=== PATIENT | male | born 1960 | race Caucasian/White ===

== ENCOUNTER 2017-09-27 06:35 | Inpatient (IN) | payer OTHER ==
[2017-09-27] MEDS ORDERED: MORPHINE 10 MG/ML VIAL ONE (07:43)
[2017-09-27] MEDS ORDERED: ONDANSETRON 4 MG/2 ML VIAL ONE (07:43)
[2017-09-27 08:01] LABS: Absolute Lymphocytes (CBC) 2.3 K/uL (0.7-4.9); Absolute Neutrophil 10.3 K/uL (1.8-8.0); Basophils % 0.7 % (0-1.3); Eosinophils % 1.4 % (0-4.4); Hematocrit 41.4 % (39.6-49.0); Lymphocytes % 16.7 % (15.3-44.8); MCH 36.3 pg (27.0-35.0); MCV 104.1 fL (80-100); MPV 10.5 fL (7.6-11.3); Monocytes % 7.2 % (3.3-12.3); RBC Red Blood Cell Count 3.98 M/uL (4.33-5.43)
[2017-09-27 08:14] LABS: Bicarbonate 30 mEq/L (21-31); Glomerular Filtration Rate > 60 mL/min (>60); Glucose Level 134 mg/dL (65-120); Potassium 3.9 mEq/L (3.6-5.0); Sodium Level 137 mEq/L (135-145)
[2017-09-27 08:21] LABS: ALT/SGPT 33 IU/L (10-60); AST/SGOT 31 IU/L (10-42); Albumin 3.5 g/dL (3.2-5.5); Alkaline Phosphatase 71 IU/L (42-121); BUN Blood Urea Nitrogen 13 mg/dL (6-20); Bilirubin Direct 0.3 mg/dL (0-0.2); Bilirubin Total 1.5 mg/dL (0.3-1.2); Glomerular Filtration Rate > 90 mL/min (=/>90); Protein, Total 6.8 g/dL (6.0-8.3)
[2017-09-27 09:05] LABS: Lipase 562 U/L (22-51)
--- NOTE | 2017-09-27 09:05 | RAD REPORT ---
EXAM DESCRIPTION: CTAbdomen Pelvis W Contrast - 09/27/2017 8:40 am CLINICAL HISTORY: Abdominal pain. COMPARISON: 08/27/2017, 08/21/2017 TECHNIQUE: Biphasic CT imaging of the abdomen and pelvis was performed with 100 ml non-ionic IV cont rast. All CT scans are performed using dose optimization technique as appropriate and may include automated exposure control or mA/KV adjustment according to patient size. FINDINGS: The lung bases are clear. Mild diffuse fatty liver is seen. No focal liver lesion or biliary dilatation. The spleen appears abs ent, however several splenules are present in the left upper quadrant. Peripancreatic fat stranding i s seen about the tail the pancreas. No pathologic fluid collections, pancreatic necrosis or portal ve nous thrombosis. The adrenal glands and kidneys are unremarkable. No bowel obstruction, free air, free fluid or abscess. Small fat containing umbilical hernia. The kaiden endix is normal. No evidence of significant lymphadenopathy. Moderate lower lumbar degenerative changes. IMPRESSION: Mild peripancreatic fat stranding is seen particularly along around body and tail the pa ncreas, most compatible with acute pancreatitis. No complication is evident related to this. Mild fatty liver.
--- NOTE | 2017-09-27 10:13 | RAD REPORT ---
EXAM DESCRIPTION: US - Abdomen Exam Limited - 09/27/2017 10:02 am CLINICAL HISTORY: Right upper quadrant pain COMPARISON: CT study same date FINDINGS: No gallstones, sludge or other abnormalities within the gallbladder lumen. There is no wal l thickening or pericholecystic fluid. No common duct stone or biliary tree dilatation identified. Liver is not fully assessed but does show a fatty infiltration pattern. IMPRESSION: Normal gallbladder and biliary tree ultrasound. Fatty infiltration of a partially imaged liver.
[2017-09-27] MEDS ORDERED: NA CHLORIDE 0.9% 1,000 ML ONE ×2 (10:14→11:49)
--- NOTE | 2017-09-27 10:35 | EDPHYS ---
Physician Documentation [facility] Name: Miky Boudreaux Age: 57 yrs Sex: Male : 1960 Arrival Date: 09/27/2017 Time: 06:36 Bed 7 Private MD: ED Physician Jasper Hernandez HPI: 09/27 07:28 This 57 yrs old Male presents to ER via Wheelchair with complaints of jr8 Abdominal Pain. 07:28 The patient presents with abdominal pain that is diffuse. Onset: The symptoms/episode jr8 began/occurred acutely, yesterday. The symptoms do not radiate. Associated signs and symptoms: Pertinent positives: diarrhea, Pertinent negatives: nausea and vomiting. The symptoms are described as sharp. Modifying factors: The symptoms are alleviated by nothing, the symptoms are aggravated by nothing. Severity of pain: At its worst the pain was moderate in the emergency department the pain is unchanged. The patient has not experienced similar symptoms in the past. The patient has not recently seen a physician. 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 - Social history:: Smoking status: Patient uses tobacco products, smokes one-half pack cigarettes per day, Patient uses alcohol, on a daily basis. Patient/guardian denies using street drugs. ROS: 07:28 Eyes: Negative for injury, pain, redness, and discharge, ENT: Negative for injury, jr8 pain, and discharge, Neck: Negative for injury, pain, and swelling, Cardiovascular: Negative for chest pain, palpitations, and edema, Respiratory: Negative for shortness of breath, cough, wheezing, and pleuritic chest pain, Back: Negative for injury and pain, MS/Extremity: Negative for injury and deformity, Skin: Negative for injury, rash, and discoloration, Neuro: Negative for headache, weakness, numbness, tingling, and seizure. 07:28 Abdomen/GI: Positive for abdominal pain, diarrhea, Negative for nausea and vomiting, abdominal distension, anorexia, dysphagia, hematemesis, black/tarry stool, rectal pain, rectal bleeding, bowel incontinence, flatulence. Exam: 07:28 Eyes: Pupils equal round and reactive to light, extra-ocular motions intact. Lids and jr8 lashes normal. Conjunctiva and sclera are non-icteric and not injected. Cornea within normal limits. Periorbital areas with no swelling, redness, or edema. ENT: Nares patent. No nasal discharge, no septal abnormalities noted. Tympanic membranes are normal and external auditory canals are clear. Oropharynx with no redness, swelling, or masses, exudates, or evidence of obstruction, uvula midline. Mucous membranes moist. Neck: Trachea midline, no thyromegaly or masses palpated, and no cervical lymphadenopathy. Supple, full range of motion without nuchal rigidity, or vertebral point tenderness. No Meningismus. Cardiovascular: Regular rate and rhythm with a normal S1 and S2. No gallops, murmurs, or rubs. Normal PMI, no JVD. No pulse deficits. Respiratory: Lungs have equal breath sounds bilaterally, clear to auscultation and percussion. No rales, rhonchi or wheezes noted. No increased work of breathing, no retractions or nasal flaring. Back: No spinal tenderness. No costovertebral tenderness. Full range of motion. Skin: Warm, dry with normal turgor. Normal color with no rashes, no lesions, and no evidence of cellulitis. MS/ Extremity: Pulses equal, no cyanosis. Neurovascular intact. Full, normal range of motion. Neuro: Awake and alert, GCS 15, oriented to person, place, time, and situation. Cranial nerves II-XII grossly intact. Motor strength 5/5 in all extremities. Sensory grossly intact. Cerebellar exam normal. Normal gait. 07:28 Abdomen/GI: Inspection: obese Bowel sounds: active, all quadrants, Palpation: soft, in all quadrants, mild abdominal tenderness, in the abdomen diffusely, Indicators: McBurney's point is not tender, Will's sign is negative, Rovsing's sign is negative, Liver: tenderness, is not appreciated. Vital Signs: 07:02 BP 133 / 85; Pulse 113; Resp 20 S; Temp 98.2(O); Pulse Ox 97% on 2 lpm NC; Weight bb 128.82 kg (R); Height 5 ft. 9 in. (175.26 cm) (R); Pain 10/10; 12:00 BP 141 / 86; Pulse 91; Resp 18; Temp 98.2; Pulse Ox 96% ; sg 07:02 Body Mass Index 41.94 (128.82 kg, 175.26 cm) bb Crivitz Coma Score: 12:00 Eye Response: spontaneous(4). Verbal Response: oriented(5). Motor Response: obeys sg commands(6). Total: 15. MDM: 06:55 Patient medically screened. [facility] 10:33 Data reviewed: vital signs, nurses notes, lab test result(s), radiologic studies, CT [facility] scan, ultrasound, and as a result, I will admit patient. Data interpreted: Pulse oximetry: on room air is 97 %. Interpretation: normal. Counseling: I had a detailed discussion with the patient and/or guardian regarding: the historical points, exam findings, and any diagnostic results supporting the discharge/admit diagnosis, lab results, radiology results, the need for further work-up and treatment in the hospital. Physician consultation: Amy Mane MD was called at 10:34, was contacted at 10:34, regarding admission, to the medical/surgical unit. consult, patient's condition, and will see patient. 09/27 07:03 Order name: Basic Metabolic Panel [facility] 09/27 07:03 Order name: CBC with Diff [facility] 09/27 07:03 Order name: Creatinine for Radiology [facility] 09/27 07:03 Order name: Hepatic Function [facility] 09/27 07:03 Order name: Lipase [facility] 09/27 08:02 Order name: CBC with Automated Diff; Complete Time: 08:07 EDAK 09/27 08:14 Order name: Creatinine (Radiology Only); Complete Time: 08:17 EDAK 09/27 08:15 Order name: Basic Metabolic Panel; Complete Time: 09:18 EDMS 09/27 08:17 Order name: CT Abd/Pelvis - W/Contrast [facility] 09/27 08:21 Order name: Liver (Hepatic) Function; Complete Time: 09:18 EDMS 09/27 09:05 Order name: Lipase; Complete Time: 09:18 EDMS 09/27 09:06 Order name: CT; Complete Time: 09:18 EDMS 09/27 09:19 Order name: US Abdomen Limited [facility] 09/27 10:13 Order name: US; Complete Time: 10:31 EDMS 09/27 07:03 Order name: IV Saline Lock; Complete Time: 07:31 [facility] /19 07:03 Order name: Labs collected and sent; Complete Time: 09/27 09:18 Order name: NPO; Complete Time: 11:35 sg Administered Medications: 07:30 Drug: Zofran 4 mg Route: IVP; Site: left antecubital; sg 07:36 Drug: morphine 4 mg Route: IVP; Site: left antecubital; sg 08:00 Follow up: Response: No adverse reaction; Pain is decreased sg 09:45 Drug: NS 0.9% 1000 ml Route: IV; Rate: 1000 ml; Site: left antecubital; hb 11:30 Follow up: Response: No adverse reaction; IV Status: Completed infusion sg 11:34 Drug: morphine 4 mg Route: IVP; Site: left antecubital; hb 12:16 Follow up: Response: No adverse reaction; Pain is decreased sg Disposition: 09/28 07:22 Co-signature as Attending Physician, Jasper Hernandez MD I agree with the assessment and josh plan of care. Disposition: 09/27/17 10:34 Hospitalization ordered by Amy Mane for Inpatient Admission. Preliminary diagnosis is Acute pancreatitis. - Bed requested for Telemetry/MedSurg (Inpatient). - Status is Inpatient Admission. sg - Condition is Stable. - Problem is new. - Symptoms have improved. UTI on Admission? No Signatures: Dispatcher [employer] Brent Miranda, RN Jasper Roper MD MD cha Ballard, Brenda, RN RN bb Solis, Maria ms Roszak, Josh, PA PA jr8 Gabi Santillan RN RN hb
--- NOTE | 2017-09-27 10:35 | ER ---
Nurse's Notes [facility] Name: Miky Boudreaux Age: 57 yrs Sex: Male : 1960 Arrival Date: 09/27/2017 Time: 06:36 Bed 7 Private MD: Diagnosis: Acute pancreatitis Presentation: 09/27 07:00 Presenting complaint: Patient states: he started having abdominal pain yesterday bb afternoon with diarrhea, denies vomiting. Transition of care: patient was not received from another setting of care. Onset of symptoms was September 26, 2017. Care prior to arrival: None. 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 - Social history:: Smoking status: Patient uses tobacco products, smokes one-half pack cigarettes per day, Patient uses alcohol, on a daily basis. Patient/guardian denies using street drugs. Screenin:15 Abuse screen: Denies threats or abuse. Denies injuries from another. Nutritional sg screening: No deficits noted. Tuberculosis screening: No symptoms or risk factors identified. Never had TB. Fall Risk None identified. Assessment: 07:15 General: Appears in no apparent distress. uncomfortable, obese, well groomed, well sg developed, well nourished, Behavior is calm, cooperative, appropriate for age. Pain: Complains of pain in abdomen diffusely. Neuro: No deficits noted. Cardiovascular: Heart tones S1 S2 present Capillary refill is brisk in bilateral fingers Patient's skin is warm and dry. Chest pain is denied. Respiratory: Airway is patent Respiratory effort is even, unlabored, Respiratory pattern is regular, symmetrical, Breath sounds are clear. GI: Bowel sounds present X 4 quads. Abd is soft X 4 quads Abdomen is tender to palpation in epigastric area. GI: Reports lower abdominal pain, upper abdominal pain, nausea. : No signs and/or symptoms were reported regarding the genitourinary system. EENT: No signs and/or symptoms were reported regarding the EENT system. Derm: Skin is pink, warm \T\ dry. Musculoskeletal: No signs and/or symptoms reported regarding the musculoskeletal system. 09:00 Reassessment: Patient appears in no apparent distress at this time. Patient and/or sg family updated on plan of care and expected duration. Pain level reassessed. Patient is alert, oriented x 3, equal unlabored respirations, skin warm/dry/pink. Patient states feeling better. 12:00 Reassessment: Patient appears in no apparent distress at this time. Patient and/or sg family updated on plan of care and expected duration. Pain level reassessed. Patient is alert, oriented x 3, equal unlabored respirations, skin warm/dry/pink. Patient states feeling better. Vital Signs: 07:02 BP 133 / 85; Pulse 113; Resp 20 S; Temp 98.2(O); Pulse Ox 97% on 2 lpm NC; Weight bb 128.82 kg (R); Height 5 ft. 9 in. (175.26 cm) (R); Pain 10/10; 12:00 BP 141 / 86; Pulse 91; Resp 18; Temp 98.2; Pulse Ox 96% ; sg 07:02 Body Mass Index 41.94 (128.82 kg, 175.26 cm) bb Dialia Coma Score: 12:00 Eye Response: spontaneous(4). Verbal Response: oriented(5). Motor Response: obeys sg commands(6). Total: 15. ED Course: 06:36 Patient arrived in ED. ds1 06:55 Aleksander Alonso PA is PHCP. jr8 06:55 Clarence Banegas MD is Attending Physician. jr8 07:00 Missed attempt(s): 22 gauge in left forearm. Bleeding controlled, band aid applied, ea catheter tip intact. 07:01 Triage completed. bb 07:02 Arm band placed on Patient placed in an exam room, on a stretcher, on pulse oximetry. bb Family accompanied patient. 07:15 Patient has correct armband on for positive identification. Bed in low position. Call sg light in reach. Pulse ox on. NIBP on. 07:15 Missed attempt(s): 22 gauge in right antecubital area. Bleeding controlled, band aid ea applied, catheter tip intact. 07:21 Brent Lagos, RN is Primary Nurse. sg 07:32 Initial lab(s) drawn, by me, sent to lab. Inserted saline lock: 20 gauge in left ms antecubital area, using aseptic technique. Blood collected. Missed attempt(s): 22 gauge in right wrist. Bleeding controlled, band aid applied, catheter tip intact. 08:07 Jasper Hernandez MD is Attending Physician. jr8 08:39 CT completed. Patient tolerated procedure well. Patient moved to CT via wheelchair. sj Patient moved back from CT. 08:44 CT completed. Patient tolerated procedure well. Patient moved to CT via wheelchair. sj Patient moved back from CT. 10:34 Amy Mane MD is Hospitalizing Provider. jr8 11:04 Ultrasound completed. Patient tolerated well. Patient moved back from ultrasound. lc3 12:25 No provider procedures requiring assistance completed. Patient admitted, IV remains in sg place. intact, No redness/swelling at site. Administered Medications: 07:30 Drug: Zofran 4 mg Route: IVP; Site: left antecubital; sg 07:36 Drug: morphine 4 mg Route: IVP; Site: left antecubital; sg 08:00 Follow up: Response: No adverse reaction; Pain is decreased sg 09:45 Drug: NS 0.9% 1000 ml Route: IV; Rate: 1000 ml; Site: left antecubital; hb 11:30 Follow up: Response: No adverse reaction; IV Status: Completed infusion sg 11:34 Drug: morphine 4 mg Route: IVP; Site: left antecubital; hb 12:16 Follow up: Response: No adverse reaction; Pain is decreased sg Outcome: 10:34 Decision to Hospitalize by Provider. jr8 12:25 Admitted to Med/surg accompanied by tech, family with patient, via wheelchair, room sg 203, with chart, Report called to [facility] 12:25 Condition: stable 12:25 Instructed on the need for admit, safety practices, Demonstrated understanding of instructions, follow-up care. 12:28 Patient left the ED. sg Signatures: Brent Lagos RN RN sg Jones, Susan sj Sanford, Demi ds1 Michelle Diane RN RN bb Solis, Maria ms Roszak, Josh, MANINDER DICKENS jr8 Velia Simmons Heather, RN RN Sindy Jaime RN RN ea
[2017-09-27] MEDS ORDERED: MORPHINE 4 MG/ML SYR IV PRN (11:28)
[2017-09-27] MEDS ORDERED: ACETAMINOPHEN 500 MG TAB PO PRN (11:28)
[2017-09-27] MEDS: NA CHLORIDE 0.9% 1,000 ML IV SCH ×2 (11:28→20:57)
[2017-09-27] MEDS ORDERED: ONDANSETRON 4 MG/2 ML VIAL IV PRN (11:28)
[2017-09-27] MEDS ORDERED: MORPHINE 4 MG/ML SYR ONE (11:49)
[2017-09-27 12:55] VITALS: BMI 42.1
[2017-09-27] MEDS ORDERED: ALBUTEROL 2.5 MG/3 ML NEB SOL NEB PRN (15:23)
[2017-09-27] MEDS ORDERED: IPRATROPIUM BROM 0.5MG/2.5ML NEB PRN (15:23)
--- NOTE | 2017-09-27 18:21 | P.HP ---
Certification for Inpatient Patient admitted to: Inpatient With expected LOS: >2 Midnights Patient will require the following post-hospital care: None Practitioner: I am a practitioner with admitting privileges, knowledge of patient current condition, hospital course, and medical plan of care. Services: Services provided to patient in accordance with Admission requirements found in Title 42 Section 412.3 of the Code of Federal Regulations Patient History Date of Service: 09/27/17 Primary Care Provider: Dr Rodrigues Reason for admission: Pancreatitis History of Present Illness: This is a 57-year-old male with significant past medical history of COPD, hypertension, gout who presented to the ED having some generalized abdominal pain that started yesterday. Patient noted that he has been having sharp shooting pain in his abdomen that got progressively worse and thus he decided to come to the ER. Pain was 8/10 at its worst and has not been relieved by anything. Patient of note drinks about 4-5 glasses of vodka every night. Patient states that nothing like this has ever happened to him before this is the 1st time he has noticed this. Patient denies having any nausea vomiting diarrhea or any constipation at this time. He also denies having any shortness of breath chest pain. Aside from generalized abdominal pain he does not have any other complaints to offer. In the ER patient was found to have elevated lipase count and a normal ultrasound. Patient was then referred over to medicine team for admission for further care. Allergies No Known Allergies Allergy (Unverified 07/21/17 22:33) Home Medications: Allopurinol 100 mg PO DAILY 07/22/17 Aspirin [Aspir-Low] 81 mg PO DAILY 07/22/17 Cetirizine HCl [Zyrtec] 10 mg PO DAILY 07/22/17 Cyanocobalamin (Vitamin B-12) [B-12] 2,000 mcg PO DAILY 07/22/17 Folic Acid 1 mg PO DAILY 07/22/17 Lisinopril 10 mg PO LUNCH 07/22/17 Thiamine HCl 100 mg PO DAILY 07/22/17 Tramadol HCl [Ultram] 50 mg PO BEDTIME 07/22/17 Albuterol Inhaler [Ventolin Inhaler*] 2 puff IH Q6H PRN #1 hfa.aer.ad 07/23/17 Metformin HCl [Glucophage] 1 tab PO BID 07/23/17 Mometasone/Formoterol [Dulera 100 Mcg/5 Mcg Inhaler] 2 puff IH BID #1 inhaler Lactobacillus Acidophilus [Acidophilus Lactobacilli] 1 each PO TID #90 capsule 08/22/17 Magnesium Oxide [Mag 0X Tab] 400 mg PO BID #60 tab 08/22/17 Metronidazole [Flagyl] 500 mg PO Q8H #30 tablet 08/22/17 Pantoprazole [Protonix Tab*] 40 mg PO DAILYAC #30 tab 08/22/17 - Past Medical/Surgical History Has patient received pneumonia vaccine in the past: Yes Diabetic: No -: Gout -: HTN -: Allergies -: ETOH abuse -: Chronic Pain -: COPD -: Spleenectomy -: Shoulder Surgery - Family History Mother -: Lung disease - Social History Smoking Status: Current every day smoker Alcohol use: Yes CD- Drugs: No Caffeine use: Yes Place of Residence: Home Review of Systems 10-point ROS is otherwise unremarkable Physical Examination - Vital Signs Temperature: 95.7 F Blood Pressure: 163/92 Pulse: 104 Respirations: 16 Pulse Ox (%): 95 - Physical Exam General: Alert, In no apparent distress, Oriented x3 HEENT: Atraumatic, PERRLA, Mucous membr. moist/pink, EOMI, Sclerae nonicteric Neck: Supple, 2+ carotid pulse no bruit, No LAD, Without JVD or thyroid abnormality Respiratory: Clear to auscultation bilaterally, Normal air movement Cardiovascular: Regular rate/rhythm, Normal S1 S2 Gastrointestinal: Normal bowel sounds, Tenderness (Generalized pain) Musculoskeletal: No tenderness Integumentary: No rashes Neurological: Normal gait, Normal speech, Normal strength at 5/5 x4 extr, Normal tone, Normal affect Lymphatics: No axilla or inguinal lymphadenopathy - Studies Laboratory Data (last 24 hrs) 09/27/17 07:21: Creatinine 0.70 09/27/17 07:21: WBC 13.9 H, Hgb 14.4, Hct 41.4, Plt Count 175 09/27/17 07:21: Sodium 137, Potassium 3.9, BUN 13, Creatinine 0.72, Glucose 134 H, Total Bilirubin 1.5 H, AST 31, ALT 33, Alkaline Phosphatase 71, Lipase 562 H Assessment and Plan - Problems (Diagnosis) (1) Pancreatitis Current Visit: Yes Status: Acute Plan: Alcohol Induced Pancreatitis. -NPO, IVfluids and Pain medication -MRCP pending. Initially U/S WNL. No CBD dilation and stone noted -Lipid panel pending at this time. Qualifiers: Chronicity: acute Pancreatitis type: alcohol induced Acute pancreatitis complication: unspecified Qualified Code(s): K85.20 - Alcohol induced acute pancreatitis without necrosis or infection (2) COPD (chronic obstructive pulmonary disease) Onset Date: 07/22/17 Current Visit: No Status: Chronic Plan: Will place on Duonebs here in the hospital Qualifiers: COPD type: unspecified COPD Qualified Code(s): J44.9 - Chronic obstructive pulmonary disease, unspecified (3) GERD (gastroesophageal reflux disease) Current Visit: No Status: Chronic Plan: Will restart on Protonix. Qualifiers: Esophagitis presence: without esophagitis Qualified Code(s): K21.9 - Gastro -esophageal reflux disease without esophagitis (4) HTN (hypertension) Current Visit: No Status: Chronic Plan: Will restart on Lisinopril here in the hospital Qualifiers: Hypertension type: essential hypertension (5) Obesity Current Visit: No Status: Chronic Qualifiers: Obesity type: due to excess calories Obesity classification: adult class 3 (BMI >= 40) Serious obesity comorbidity presence: with serious comorbidity Body mass index: BMI 40.0-44.9 Qualified Code(s): E66.01 - Morbid (severe) obesity due to excess calories; Z68.41 - Body mass index (BMI) 40.0-44.9, adult ; Z68.41 - Body mass index (BMI) 40.0-44.9, adult; Z68.41 - Body mass index (BMI ) 40.0-44.9, adult; Z68.41 - Body mass index (BMI) 40.0-44.9, adult (6) Gout Current Visit: Yes Status: Chronic Plan: Will Restart Allopurinol Qualifiers: Gout site: unspecified site Gout etiology: unspecified cause Chronicity: chronic Presence of tophus: without tophus Qualified Code(s): M1A.[id number] - Chronic gout, unspecified, without tophus (tophi) (7) Alcohol abuse Current Visit: Yes Status: Acute Plan: 4 to 5 glasses of vodka a day or may be more -CIWA and ativan PRN for WD -PO vitamins, Folic Acid and thiamine Discharge Plan: Home Plan to discharge in: 48 Hours - Advance Directives Does patient have a Living Will: No Does patient have a Durable POA for Healthcare: No - Code Status/Comfort Care Code Status Assessed: Yes Critical Care: No
--- NOTE | 2017-09-27 19:19 | RAD REPORT ---
EXAM DESCRIPTION: MRI - Cholangiogram - 09/27/2017 6:36 pm CLINICAL HISTORY: Acute pancreatitis. Abdominal pain COMPARISON: CT study September 27 FINDINGS: No suspicious liver finding. Small remnant splenic nodules are seen in the left upper quad rant. No pancreatic parenchymal mass. No acute gallbladder finding seen. No intrahepatic biliary tree dilatation. Extrahepatic biliary tree is normal in diameter. No duct stone, stricture, mass or other duct abnormality seen. Imaged portions of the pancreatic duct show no suspicious finding. IMPRESSION: MRCP examination shows no significant or suspicious finding.
[2017-09-27] MEDS: LISINOPRIL 10 MG TAB PO SCH (20:55)
[2017-09-27] MEDS: MORPHINE 4 MG/ML SYR IV PRN (20:56)
[2017-09-27] MEDS: LACTOBACILLUS/ACIDOPHILUS TAB PO SCH (20:56)
[2017-09-27] MEDS: MAGNESIUM OXIDE 400 MG TAB PO SCH (20:56)
[2017-09-27 21:06] LABS: Urine Appearance CLEAR; Urine Blood NEGATIVE (NEG); Urine Color DK YELLOW; Urine Glucose NEGATIVE (NEG); Urine Protein NEGATIVE (NEG); Urine Specific Gravity >=1.030 (1.005-1.030); Urine Urobilinogen 0.2 mg/dL (0.2-1.0)
[2017-09-27 21:08] LABS: Urine Bilirubin NEGATIVE (NEG); Urine Microscopic Reflex NO UMIC
[2017-09-28] MEDS: MORPHINE 4 MG/ML SYR IV PRN ×4 (02:05→20:47)
[2017-09-28 04:57] LABS: Absolute Lymphocytes (CBC) 1.8 K/uL (0.7-4.9); Absolute Monocytes 1.3 K/uL (0.1-1.3); Absolute Neutrophil 13.6 K/uL (1.8-8.0); Basophils % 0.4 % (0-1.3); Eosinophils % 0.9 % (0-4.4); Hematocrit 37.8 % (39.6-49.0); Lymphocytes % 10.6 % (15.3-44.8); MCH 35.6 pg (27.0-35.0); MCV 106.6 fL (80-100); MPV 9.9 fL (7.6-11.3); Monocytes % 7.9 % (3.3-12.3); RBC Red Blood Cell Count 3.55 M/uL (4.33-5.43)
[2017-09-28 05:15] LABS: ALT/SGPT 28 IU/L (10-60); AST/SGOT 24 IU/L (10-42); Albumin 3.2 g/dL (3.2-5.5); Bicarbonate 31 mEq/L (21-31); Bilirubin Direct 0.4 mg/dL (0-0.2); Bilirubin Total 2.3 mg/dL (0.3-1.2); Protein, Total 5.9 g/dL (6.0-8.3); Sodium Level 138 mEq/L (135-145)
[2017-09-28 05:17] LABS: Blood Morphology Comment NOTED (NOT SEEN); Macrocytosis 1+; Platelet Estimate ADEQ; Urine White Blood Cell Casts OK
[2017-09-28 05:20] LABS: Alkaline Phosphatase 75 IU/L (42-121); BUN Blood Urea Nitrogen 10 mg/dL (6-20); Glomerular Filtration Rate > 90 mL/min (=/>90); Glucose Level 105 mg/dL (65-120); Lipase 145 U/L (22-51)
[2017-09-28] MEDS: PANTOPRAZOLE 40MG TABLET PO SCH (06:30)
[2017-09-28] MEDS: NA CHLORIDE 0.9% 1,000 ML IV SCH ×2 (09:45→17:05)
[2017-09-28] MEDS: THIAMINE HCL 100 MG TABLET PO SCH (09:46)
[2017-09-28] MEDS: FOLIC ACID 1 MG TABLET PO SCH (09:46)
[2017-09-28] MEDS: ASPIRIN EC 81 MG TAB PO SCH (09:46)
[2017-09-28] MEDS: MAGNESIUM OXIDE 400 MG TAB PO SCH ×2 (09:46→20:47)
[2017-09-28] MEDS: ALLOPURINOL 100 MG TAB PO SCH (09:46)
[2017-09-28] MEDS: CETIRIZINE HCL 5 MG TABLET PO SCH (09:46)
[2017-09-28] MEDS: LACTOBACILLUS/ACIDOPHILUS TAB PO SCH ×3 (09:46→20:47)
[2017-09-28] MEDS: CYANOCOBALAMIN 1,000 MCG TAB PO SCH (09:47)
--- NOTE | 2017-09-28 10:13 | P.PN ---
Subjective Date of Service: 09/28/17 Primary Care Provider: Dr Rodrigues Chief Complaint: Pancreatitis In and examined at bedside with RN. Case reviewed. Patient currently still complaining of having abdominal pain that is sharp in nature. Pain is 6/10. Patient is currently NPO and ambulatory Review of Systems 10-point ROS is otherwise unremarkable Physical Examination - Vital Signs Temperature: 97.2 F Blood Pressure: 147/87 Pulse: 101 Respirations: 18 Pulse Ox (%): 95 - Physical Exam General: Alert, In no apparent distress, Oriented x3 HEENT: Atraumatic, PERRLA, EOMI Neck: Supple, JVD not distended Respiratory: Clear to auscultation bilaterally, Normal air movement Cardiovascular: Regular rate/rhythm, Normal S1 S2 Gastrointestinal: Normal bowel sounds, Distended, Tenderness Musculoskeletal: No tenderness Integumentary: No rashes Neurological: Normal speech, Normal tone, Normal affect Lymphatics: No axilla or inguinal lymphadenopathy - Studies Medications List Reviewed: Yes Assessment & Plan - Problems (Diagnosis) (1) Pancreatitis Current Visit: Yes Status: Acute Plan: Alcohol Induced Pancreatitis. -FLD, IVfluids and Pain medication -MRCP negative. Initially U/S WNL. No CBD dilation and stone noted -Lipid panel with Elevated TG's. -Started on levofloxacin Qualifiers: Chronicity: acute Pancreatitis type: alcohol induced Acute pancreatitis complication: unspecified Qualified Code(s): K85.20 - Alcohol induced acute pancreatitis without necrosis or infection (2) COPD (chronic obstructive pulmonary disease) Onset Date: 07/22/17 Current Visit: No Status: Chronic Plan: On Duonebs here in the hospital Qualifiers: COPD type: unspecified COPD Qualified Code(s): J44.9 - Chronic obstructive pulmonary disease, unspecified (3) GERD (gastroesophageal reflux disease) Current Visit: No Status: Chronic Plan: On Protonix. Qualifiers: Esophagitis presence: without esophagitis Qualified Code(s): K21.9 - Gastro -esophageal reflux disease without esophagitis (4) HTN (hypertension) Current Visit: No Status: Chronic Plan: On Lisinopril here in the hospital Qualifiers: Hypertension type: essential hypertension (5) Obesity Current Visit: No Status: Chronic Qualifiers: Obesity type: due to excess calories Obesity classification: adult class 3 (BMI >= 40) Serious obesity comorbidity presence: with serious comorbidity Body mass index: BMI 40.0-44.9 Qualified Code(s): E66.01 - Morbid (severe) obesity due to excess calories; Z68.41 - Body mass index (BMI) 40.0-44.9, adult ; Z68.41 - Body mass index (BMI) 40.0-44.9, adult; Z68.41 - Body mass index (BMI ) 40.0-44.9, adult; Z68.41 - Body mass index (BMI) 40.0-44.9, adult (6) Gout Current Visit: Yes Status: Chronic Plan: Will Restart Allopurinol Qualifiers: Gout site: unspecified site Gout etiology: unspecified cause Chronicity: chronic Presence of tophus: without tophus Qualified Code(s): M1A.9XX0 - Chronic gout, unspecified, without tophus (tophi) (7) Alcohol abuse Current Visit: Yes Status: Acute Plan: 4 to 5 glasses of vodka a day or may be more -CIWA and ativan PRN for WD -PO vitamins, Folic Acid and thiamine
[2017-09-28] MEDS: LISINOPRIL 10 MG TAB PO SCH (12:49)
[2017-09-28] MEDS: Levofloxacin500mg IV 500 MG/100 ML BAG IV SCH (12:49)
[2017-09-28] MEDS: METRONIDAZOLE 500mg IVPB 500 MG/100 ML BAG IV SCH (17:04)
[2017-09-29] MEDS: NA CHLORIDE 0.9% 1,000 ML IV SCH ×3 (00:32→20:40)
[2017-09-29] MEDS: METRONIDAZOLE 500mg IVPB 500 MG/100 ML BAG IV SCH ×3 (00:32→16:43)
[2017-09-29] MEDS: PANTOPRAZOLE 40MG TABLET PO SCH (05:19)
[2017-09-29] MEDS: Levofloxacin500mg IV 500 MG/100 ML BAG IV SCH (10:15)
[2017-09-29] MEDS: LACTOBACILLUS/ACIDOPHILUS TAB PO SCH ×3 (10:15→20:20)
[2017-09-29] MEDS: CETIRIZINE HCL 5 MG TABLET PO SCH (10:16)
[2017-09-29] MEDS: ASPIRIN EC 81 MG TAB PO SCH (10:16)
[2017-09-29] MEDS: ALLOPURINOL 100 MG TAB PO SCH (10:16)
[2017-09-29] MEDS: CYANOCOBALAMIN 1,000 MCG TAB PO SCH (10:16)
[2017-09-29] MEDS: MAGNESIUM OXIDE 400 MG TAB PO SCH ×2 (10:16→20:20)
[2017-09-29] MEDS: THIAMINE HCL 100 MG TABLET PO SCH (10:16)
[2017-09-29] MEDS: FOLIC ACID 1 MG TABLET PO SCH (10:17)
[2017-09-29] MEDS: LISINOPRIL 10 MG TAB PO SCH (13:37)
[2017-09-29 21:39] VITALS: O2SAT 96
--- NOTE | 2017-09-29 23:00 | PN ---
The patient is doing much better. He still has some tenderness in the upper abdomen. However, bowel sounds are present. The patient will be started on liquid diet to see how he would tolerate. Deedee ng that management will be continued along the same lines. JOSE/RUSSELL Voice ID: [id number] Report ID: [id number]
[2017-09-30] MEDS: METRONIDAZOLE 500mg IVPB 500 MG/100 ML BAG IV SCH ×2 (00:11→09:11)
[2017-09-30] MEDS: PANTOPRAZOLE 40MG TABLET PO SCH (05:37)
[2017-09-30] MEDS: ASPIRIN EC 81 MG TAB PO SCH (09:11)
[2017-09-30] MEDS: LACTOBACILLUS/ACIDOPHILUS TAB PO SCH ×2 (09:11→13:17)
[2017-09-30] MEDS: CYANOCOBALAMIN 1,000 MCG TAB PO SCH (09:11)
[2017-09-30] MEDS: FOLIC ACID 1 MG TABLET PO SCH (09:11)
[2017-09-30] MEDS: MAGNESIUM OXIDE 400 MG TAB PO SCH (09:11)
[2017-09-30] MEDS: THIAMINE HCL 100 MG TABLET PO SCH (09:11)
[2017-09-30] MEDS: CETIRIZINE HCL 5 MG TABLET PO SCH (09:11)
[2017-09-30] MEDS: ALLOPURINOL 100 MG TAB PO SCH (09:12)
[2017-09-30 09:46] LABS: Absolute Lymphocytes (CBC) 1.8 K/uL (0.7-4.9); Absolute Monocytes 0.8 K/uL (0.1-1.3); Absolute Neutrophil 9.6 K/uL (1.8-8.0); Basophils % 0.6 % (0-1.3); Eosinophils % 2.5 % (0-4.4); Hematocrit 32.5 % (39.6-49.0); MCH 36.6 pg (27.0-35.0); MCV 106.3 fL (80-100); MPV 10.7 fL (7.6-11.3); Monocytes % 6.7 % (3.3-12.3); RBC Red Blood Cell Count 3.06 M/uL (4.33-5.43)
[2017-09-30] MEDS: Levofloxacin500mg IV 500 MG/100 ML BAG IV SCH (10:46)
[2017-09-30] MEDS: LISINOPRIL 10 MG TAB PO SCH (13:17)
[2017-09-30 16:49] VITALS: BP 120/65; TEMP 97.8
--- NOTE | 2017-10-11 02:41 | DS ---
Date of Discharge: 09/30/2017 Final Diagnoses: 1.Acute pancreatitis. 2.Alcohol abuse. 3.Hypertension. 4.Chronic obstructive pulmonary disease. 5.History of gastroesophageal reflux. 6.Hypertension. 7.Obesity. Hospital Course: This patient was admitted through the emergency room because of the abdominal pain and evidence of pancreatitis. The patient had no evidence of gallstones. He had a history of alcoho l use and pancreatitis, was attributed to his alcohol use. The patient showed improvement with conse rvative management. The patient was taken care of by hospitalist during my absence. I started seein g the patient on 09/28/2017. The patient then on showed gradual improvement of abdominal pain as wel l as nausea, and he was told about his alcohol use and its complications. The patient was discharged on 09/30/2017 to have outpatient followup. Laboratory: Please refer to the chart. JOSE/RUSSELL Voice ID: [id number] Report ID: [id number]
== END 2017-09-30 16:50 | disposition home or self-care (01) | DRG 439 ==
LOC: ER 06:35 → ERHOLD 10:37 → 2ND 12:23
PROVIDERS: ADMIT Family Medicine; ATTEND Family Medicine
DX: K85.20 Alcohol induced acute pancreatitis without necrosis or infection (principal); Z68.41 Body mass index [BMI] 40.0-44.9, adult; F10.10 Alcohol abuse, uncomplicated; I10 Essential (primary) hypertension; J44.9 Chronic obstructive pulmonary disease, unspecified; K21.9 Gastro-esophageal reflux disease without esophagitis; E66.9 Obesity, unspecified; M1A.9XX0 Chronic gout, unspecified, without tophus (tophi); Z79.82 Long term (current) use of aspirin
CPT/HCPCS: 36415; 74177; 74181; 76705; 80048; 80061; 80076; 81003; 82962; 83690; 85025; 96361; 96374; 96375; 99285; J2405; J7030; Q9967